=== PATIENT | male | born 1985 | race Two or more races ===

== ENCOUNTER 2019-08-07 13:10 | Day surgery (SDC) | payer OTHER ==
[2019-08-04 13:06] VITALS: BMI 27.3
[2019-08-07 13:30] LABS: BASO % 0.9 % (0-2.0); EOS % 1.3 % (0-4.5); HEMATOCRIT 44.3 % (35.4-49); HEMOGLOBIN 15.1 GM/dL (11.7-16.9); LYMPH % 41.3 % (8-40); MCH 28.8 pg (25.7-33.7); MEAN CELL VOLUME 84.6 fl (80-96); MEAN PLT VOLUME 8.7 fl (7.5-11.1); NEUT % 49.5 % (42.8-82.8); PLATELET COUNT 227 K/MM3 (134-434); RBC 5.23 M/mm3 (4.00-5.60); RDW 13.1 % (11.9-15.9); WHITE BLOOD COUNT 6.4 K/mm3 (4.0-10.0)
[2019-08-07 13:44] LABS: INR 1.03 (0.83-1.09); PROTHROMBIN TIME (PATIENT) 12.2 SEC (9.7-13.0)
--- NOTE | 2019-08-07 14:23 | HP ---
History & Physical Update - History History: No Change - Physical Physical: No Change - Assessment Assessment: No Change - Plan Plan: No Change (for removal meatallic foreign body LLE; r/b/t/a's d/w him in the office and informed consent obtained today.)
[2019-08-07] MEDS ORDERED: MIDAZOLAM HCL 2 MG/2 ML SINGLE DOSE VIAL ONE (14:33)
[2019-08-07] MEDS ORDERED: ceFAZolin SODIUM 1 GM VIAL IVPB ONE (14:43)
[2019-08-07] MEDS ORDERED: PROPOFOL 20 ML ONE (14:49)
[2019-08-07] MEDS ORDERED: BUPIVACAINE HCL/PF 0.5% (5 MG/ML) 30 ML VIAL IJ ONE ×2 (14:55→15:07)
--- NOTE | 2019-08-07 15:29 | OP ---
Operative Note - Note: Operative Date: 08/07/19 Pre-Operative Diagnosis: foreign body LLE Operation: removal foreign body LLE Findings: matallic foreign body in subcutaneous tissue Post-Operative Diagnosis: Same as Pre-op Surgeon: Ervin Pires Anesthesiologist/USER EXPERIENCE MANAGER: Alexander Park Anesthesia: General Specimens Removed: metallic foreign body Estimated Blood Loss (mls): 5
[2019-08-07] MEDS ORDERED: PROMETHAZINE HCL 25 MG/1 ML VIAL IVPUSH PRN (15:42)
[2019-08-07] MEDS ORDERED: oxyCODONE HCL 5 MG TABLET PO PRN (15:42)
[2019-08-07] MEDS ORDERED: ONDANSETRON 4 MG/2 ML VIAL IVPUSH PRN (15:42)
[2019-08-07] MEDS ORDERED: oxyCODONE HCL 5 MG TABLET ONE (17:42)
[2019-08-07 18:09] VITALS: TEMP 98.2
[2019-08-07 18:40] VITALS: BP 122/60; PULSE 65
--- NOTE | 2019-08-08 15:12 | OP ---
DATE OF OPERATION: 08/07/2019 PREOPERATIVE DIAGNOSIS: Metallic foreign body of the left leg. POSTOPERATIVE DIAGNOSIS: Metallic foreign body of the left leg. PROCEDURE: Wound exploration and removal of metallic foreign body of the left leg. SURGEON: Ervin Pires MD ANESTHESIA: General. OPERATIVE FINDINGS: There was a metallic foreign body in the left leg, which was removed without incident. The rest of the findings showed evidence of contusion of the surrounding tissue and hematoma, and the rest of the findings were unremarkable. PROCEDURE: The patient was placed on the operating table in supine position, and after the induction of general anesthesia, the patient's left lower extremity below the knee was prepped with Betadine and draped in sterile fashion. Timeout was taken and the area over the site of injury was infiltrated with 1% lidocaine and 0.5% Marcaine in equal concentration. Incision was made with a scalpel and taken down through skin and subcutaneous tissue, and using blunt dissection, the foreign body was identified. It was removed in one piece intact and sent for pathological examination after being photographed. Copious irrigation was carried out and there was no evidence of abscess or nonviable tissue. Hemostasis was secured with electrocautery and then again the wound was copiously irrigated with sterile saline and peroxide. The wound was then closed in 1 layer using interrupted 3-0 nylon vertical mattress sutures. Dry sterile dressings were placed and the procedure terminated at this point, and the patient aroused from general anesthesia and transferred to the post-anesthesia care unit in stable condition, awake and alert. Estimated blood loss minimal. Drains: None. Specimen: Metallic foreign body to pathology. I, Ervin Pires, was physically present in the operating room from the time the patient was placed on the operating table until he was transferred to the post-anesthesia care unit in [facility]. MD MADELAINE Matt/[id number] MTDD
--- NOTE | 2019-08-09 17:53 | PATH ---
Surgical Pathology Report Patient Name: ASPEN MONTANEZ Med. Rec. #: [id number] /Age/Gender: 1985 (Age: 34) / M Account: [id number] Location: [facility] SURGICAL Taken: 08/07/2019 Received: 08/08/2019 Reported: 08/09/2019 Physicians: Ervin Pires MD Specimen(s) Received FOREIGN BODY Clinical History Foreign body left leg Final Diagnosis FOREIGN BODY, REMOVAL: FOREIGN BODY MATERIAL. MACROSCOPIC DIAGNOSIS. Electronically Signed Ana Maria Mares M.D. Gross Description Received fresh labeled "foreign body" is an irregular metallic fragment measuring 0.7 x 0.2 cm. No soft tissue present, for gross examination only. [email or web address]/08/08/2019 [email or web address]/08/08/2019
== END 2019-08-07 18:45 | disposition home or self-care (01) ==
LOC: JASU-SURG 13:10
PROVIDERS: ATTEND Surgery
PROC: 0JBP0ZZ Excision of Left Lower Leg Subcutaneous Tissue and Fascia, Open Approach (ICD-10-PCS; principal; 2019-08-07 14:00)
DX: S81.842A Puncture wound with foreign body, left lower leg, initial encounter (principal); X58.XXXA Exposure to other specified factors, initial encounter; Y93.89 Activity, other specified; Y92.89 Other specified places as the place of occurrence of the external cause; Y99.9 Unspecified external cause status
CPT/HCPCS: 36415; 85025; 85610; 88300-TC; 94760